=== PATIENT | male | born 1990 | race African-American/Black ===

== ENCOUNTER 2022-01-30 18:37 | Emergency (ER) | payer MEDICAID ==
[~2022-01-30] VITALS: Ht 177.8 cm; Wt 135.0 kg
[2022-01-30] MEDS ORDERED: IOHEXOL 350 MG/ML 100 ML VIAL ONE (19:53)
[2022-01-30] MEDS ORDERED: SODIUM CHLORIDE 0.9% 100 ML ONE (19:53)
[2022-01-30] MEDS: AMPICILLIN SODIUM/SULBACTAM NA 3 GM in SODIUM CHLORIDE 0.9% 100 ML IV ONE (20:04)
[2022-01-30] MEDS: DEXAMETHASONE SOD PHOS 4 MG/ML 5 ML VIAL IVP ONE (20:05)
[2022-01-30] MEDS: SODIUM CHLORIDE 0.9% 1,000 ML IV ONE (20:05)
[2022-01-30 20:06] LABS: BASOPHILS % (AUTO) 0.5 % (0.0-2.0); EOSINOPHILS % (AUTO) 2.9 % (1.0-6.0); HEMATOCRIT 38.4 % (41-53); LYMPHOCYTES # (AUTO) 2.7 K/uL (1.0-4.8); MEAN CORPUSCULAR HEMOGLOBIN 30.6 pg (26.0-34.0); MEAN CORPUSCULAR HGB CONC 33.8 G/dL (31.0-37.0); MEAN CORPUSCULAR VOLUME 90 fL (80-100); MONOCYTES # (AUTO) 1.6 K/uL (0.1-1.0); NEUTROPHILS # (AUTO) 14.7 K/uL (1.8-7.7); NEUTROPHILS % (AUTO) 74.6 % (40.0-70.0); PLATELET COUNT (AUTO) 472 K/uL (150-450); RED BLOOD CELL COUNT(AUTO) 4.25 MIL/uL (4.50-5.90); RED CELL DISTRIBUTION WIDTH 13.1 % (11.5-14.5)
[2022-01-30 20:14] LABS: CALCIUM, TOTAL 8.6 mg/dL (8.8-10.5); CREATININE 1.52 mg/dL (0.60-1.30); POTASSIUM 3.6 mmol/L (3.5-5.1)
[2022-01-30 20:21] LABS: ALBUMIN 3.2 g/dL (3.4-5.0); BILIRUBIN,TOTAL 0.2 mg/dL (0.1-1.0)
[2022-01-30 20:31] LABS: COVID AG,FIA SOURCE NASAL SWAB
[2022-01-30] MEDS: KETOROLAC TROMETHAMINE 30 MG/ML VIAL IVP ONE (20:42)
[2022-01-30 20:53] LABS: INFLUENZA TYPE A NEGATIVE FOR TYPE A (NEGATIVE); INFLUENZA TYPE B POSITIVE FOR TYPE B (NEGATIVE)
[2022-01-31 10:12] VITALS: BP 150/99
== END 2022-01-31 11:35 | disposition short-term general hospital (02) ==
LOC: EMS 18:53
DX: J36 Peritonsillar abscess (principal); Z20.822 Contact with and (suspected) exposure to COVID-19; J10.1 Influenza due to other identified influenza virus with other respiratory manifestations; R05.9 Cough, unspecified
CPT/HCPCS: 99285; 96365; 70491; 96375; 87426; 80053; 85025; 87430; 87804; 36415; J1100; J1885; J0295; Q9967; J7030; J7050

== ENCOUNTER 2023-01-25 12:46 | Emergency (ER) | payer MEDICAID ==
[~2023-01-25] VITALS: Ht 177.8 cm; Wt 113.6 kg
[2023-01-25 15:12] LABS: APPEARANCE,URINE CLEAR (CLEAR); BILIRUBIN,URINE NEGATIVE (NEGATIVE); COLOR,URINE LIGHT YELLOW (YELLOW); GLUCOSE, URINE (UA) NEGATIVE (NEGATIVE); KETONES,URINE NEGATIVE (NEGATIVE); LEUKOCYTE ESTERASE ,URINE SMALL (NEGATIVE); NITRATE,URINE NEGATIVE (NEGATIVE); OCCULT BLOOD,URINE LARGE (NEGATIVE); PH,URINE 5.5 (5.0-8.0); PROTEIN,URINE TRACE mg/dL (NEGATIVE); SPECIFIC GRAVITIY, URINE 1.018 (1.003-1.030); UROBILINOGEN,URINE <=1.0 mg/dL (<=1.0)
[2023-01-25 15:20] LABS: RBC,URINE 26-50 /HPF (0-2)
[2023-01-25 15:21] LABS: BACTERIA,URINE Rare /HPF (None Seen); SQUAMOUS EPITHELIAL CELL,UR Few /LPF (None Seen)
[2023-01-25] MEDS ORDERED: LISINOPRIL 10 MG TABLET PO ONE (16:45)
[2023-01-25] MEDS ORDERED: CefTRIAXone SODIUM 1 GM/VIAL IM ONE (16:45)
[2023-01-25] MEDS ORDERED: LIDOCAINE/PF 1% 2 ML VIAL IM ONE (16:45)
[2023-01-25] MEDS ORDERED: DOXYCYCLINE HYCLATE 100 MG TABLET PO ONE (16:45)
[2023-01-25] MEDS ORDERED: LISI-661 PO ×2 (16:54→19:32)
[2023-01-25] MEDS ORDERED: AmLODIPine BESYLATE 10 MG TABLET PO ONE (17:45)
[2023-01-25 19:31] VITALS: TEMP 98.2
[2023-01-25] MEDS ORDERED: DOXY-354 PO (19:32)
[2023-01-25 19:35] VITALS: BP 150/80; PULSE 70; RESP 18
== END 2023-01-25 20:30 | disposition home or self-care (01) ==
LOC: EMS 12:46
DX: N34.2 Other urethritis (principal); I10 Essential (primary) hypertension; Z98.890 Other specified postprocedural states
CPT/HCPCS: 99285; 81001; 87086; 87186; 87491; 87591; 96372; J0696; J3490